=== PATIENT | male | born 1945 | race Caucasian/White ===

== ENCOUNTER → 2020-08-27 | Outpatient (CLI) | payer OTHER ==
[~2020-08-27] MED LIST: ASA81BEC PO; LIPITOR 20 MG T20 M1 PO; MELOXICAM7.5 MG PO; XARELTO20 MG PO
== END ==
LOC: SJCVC 10:21
PROVIDERS: ATTEND Internal Medicine Cardiovascular Disease
DX: I48.92 Unspecified atrial flutter (principal); R00.0 Tachycardia, unspecified; R07.9 Chest pain, unspecified; E78.00 Pure hypercholesterolemia, unspecified; R00.2 Palpitations; E78.5 Hyperlipidemia, unspecified; Z87.891 Personal history of nicotine dependence; Z72.89 Other problems related to lifestyle; Z79.82 Long term (current) use of aspirin; Z79.899 Other long term (current) drug therapy; Z88.2 Allergy status to sulfonamides; Z88.0 Allergy status to penicillin

== ENCOUNTER → 2020-08-27 | Outpatient (CLI) | payer OTHER ==
--- NOTE | ~2020-08-27 | EKG ---
[address] [address] ELECTROCARDIOGRAM REPORT Name: CHARLENE MUSA Room #: 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
--- NOTE | 2020-08-27 13:09 | TEE ---
[facility] [place] [address] TRANSESOPHAGEAL ECHOCARDIOGRAM Name: CHARLENE MUSA Room #: [facility]#: [id number] Admission: 08/27/20 Attend Phys: Yassine Mcdonough MD, Discharge: Date of : 47 Report #: [id number] THIS REPORT FOR: cc: Bert Lara MD, Bryan W. MD Santiago, Patrick MD [facility] ~ APPROVED REPORT Study performed: 08/27/2020 12:22:28 EXAM: Comprehensive 2D, Doppler, and color-flow Echocardiogram Patient Location: Out-Patient Status: routine HR: 78 bpm BP: 130/82 mmHg Rhythm: Atrial Flutter Other Information Study Quality: Good Indications Atrial Flutter/Cardioversion Procedure After obtaining informed consent, patient underwent transesophageal echo in the [employer]. Type of Sedation : Conscious Sedation Sedation was administered by MANE Nolan. Sedation start time: 1221 Case end Time: 1227 Sedation was achieved intravenously with: Versed (4) Fentanyl (50) Transesophageal probe was inserted and advanced into esophagus without difficulty by Jass Garcia MD. Echo enhancement indication: R/O Septal defect. The DEAN was performed without complications. Synchronized Cardioversion attempted: Successful Synchronized Cardioversion acheived with 50 Joules after 1 attempt(s). Rhythm following Synchronized Cardioversion: Normal Sinus Rhythm Throughout the procedure, the blood pressure, pulse oximetry, cardiac rhythm, and rate were monitored. The patient tolerated the procedure without adverse effects. Recovery from conscious sedation was uneventful and vital signs were [facility] [address] [place] [address] TRANSESOPHAGEAL ECHOCARDIOGRAM Name: DIMPLECHARLENE Vale Room #: REG [facility].#: [id number] Admission: 08/27/20 Attend Phys: Yassine Mcdonough, Discharge: Date of : 47 Report #: [id number] stable. Left Ventricle The left ventricle is normal size. Concentric left ventricular hypertrophy. Left ventricular systolic function is normal. LVEF is 60%. Right Ventricle The right ventricle is normal size. The right ventricular systolic function is normal. Atria Left atrium is dilated. No thrombus is visualized in the left atrium or appendage. No shunting noted with contrast bubble injection. The right atrium size is normal. Aortic Valve The aortic valve is normal in structure. Trace aortic regurgitation. There is no aortic valvular stenosis. Mitral Valve The mitral valve is normal in structure. Mild to moderate mitral regurgitation. Tricuspid Valve The tricuspid valve is normal in structure. Mild tricuspid regurgitation. Pulmonic Valve The pulmonary valve is normal in structure. Great Vessels The aortic root is normal in size. The ascending aorta is normal in size. Pericardium There is no pericardial effusion. <Conclusion> Patient in atrial flutter at baseline with variable ventricular rate Consent was obtained Esophageal probe was advanced without difficulty after appropriate sedation Left atrial appendage, small size, no obvious mass or clot detected [facility] [address] [place] [place] [address] TRANSESOPHAGEAL ECHOCARDIOGRAM Name: DIMPLECHARLENE [id number] Admission: 08/27/20 Attend Phys: Yassine Mcdonough, Discharge: Date of : 47 Report #: [id number] Normal left ventricular size with mild concentric hypertrophy Ejection fraction 55% Normal right ventricular size/function Mild left atrial enlargement Mild central mitral valve insufficiency Normal aortic valve structure and function Mild tricuspid valve insufficiency No pericardial effusion No evidence of ASD/VSD by color-flow Doppler study Aorta minimal calcification Patient was successfully cardioverted to sinus rhythm with 50J / biphasic mode Patient tolerated the procedure well Twelve-lead ECG pending <ELECTRONICALLY SIGNED> By: Jass Garcia MD, FACC 08/27/20 130 08 08 Jass Garcia MD, FACC /INF
--- NOTE | 2020-08-27 14:56 | EKG ---
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
== END | disposition home or self-care (01) ==
LOC: CATH 11:11
PROVIDERS: ATTEND Internal Medicine Cardiovascular Disease
DX: I48.92 Unspecified atrial flutter (principal); I08.3 Combined rheumatic disorders of mitral, aortic and tricuspid valves; Z98.890 Other specified postprocedural states; Z79.899 Other long term (current) drug therapy; Z79.01 Long term (current) use of anticoagulants

== ENCOUNTER → 2020-09-04 | Outpatient (CLI) | payer OTHER | LOC: SJCVC 12:45 | PROVIDERS: ATTEND Internal Medicine Cardiovascular Disease | DX: I48.92 Unspecified atrial flutter (principal); R00.0 Tachycardia, unspecified; E78.00 Pure hypercholesterolemia, unspecified; D68.59 Other primary thrombophilia; E78.5 Hyperlipidemia, unspecified; Z88.2 Allergy status to sulfonamides; Z88.0 Allergy status to penicillin; Z88.1 Allergy status to other antibiotic agents; Z79.82 Long term (current) use of aspirin; Z79.899 Other long term (current) drug therapy; Z87.891 Personal history of nicotine dependence; Z82.49 Family history of ischemic heart disease and other diseases of the circulatory system ==

== ENCOUNTER → 2020-12-24 | Outpatient (CLI) | payer OTHER | LOC: SJCVC 13:01 | PROVIDERS: ATTEND Internal Medicine Cardiovascular Disease | DX: R94.31 Abnormal electrocardiogram [ECG] [EKG] (principal); I49.3 Ventricular premature depolarization; I48.92 Unspecified atrial flutter; I10 Essential (primary) hypertension; E78.00 Pure hypercholesterolemia, unspecified; E78.5 Hyperlipidemia, unspecified; Z82.49 Family history of ischemic heart disease and other diseases of the circulatory system; Z79.82 Long term (current) use of aspirin; Z79.899 Other long term (current) drug therapy; Z88.0 Allergy status to penicillin; Z88.8 Allergy status to other drugs, medicaments and biological substances; Z88.2 Allergy status to sulfonamides; Z87.891 Personal history of nicotine dependence ==

== ENCOUNTER → 2021-01-15 | Outpatient (CLI) | payer OTHER | LOC: SJCVCIMAG 07:33 | PROVIDERS: ATTEND Internal Medicine Cardiovascular Disease | DX: I10 Essential (primary) hypertension (principal); I48.91 Unspecified atrial fibrillation; R53.83 Other fatigue; R06.00 Dyspnea, unspecified ==